=== PATIENT | female | born 1990 | race Caucasian/White ===

== ENCOUNTER 2017-02-10 19:05 | Inpatient (IN) ==
[2017-02-10] MEDS ORDERED: DINOPROSTONE 10 MG VAG.INSERT VAG ONE (19:18)
[2017-02-10 19:43] LABS: Basophils % 0.1 % (0.0-0.8); Eosinophils % 0.4 % (0.00-10.9); Hematocrit 30.8 VOL% (35.7-47.0); Hemoglobin 10.2 GM/DL (12.0-16.0); Immature Granulocytes % 0.4 %; Immature Granulocytes Absolute 0.04 #; Lymphocytes # 1.5 10*3/uL (1.4-4.0); Lymphocytes % 14.8 % (21.3-54.2); Mean Corpuscular HGB Conc 33.1 GM/DL (32-36); Mean Corpuscular Hemoglobin 29 PG (27-34); Mean Corpuscular Volume 86.8 FL (87-102); Mean Platelet Volume 10.3 FL (9.6-12.0); Monocytes # 0.5 10*3/uL (0.11-0.8); Monocytes % 5.2 % (1.7-12.7); Neutrophils # 8.2 10*3/uL (1.4-7.4); Neutrophils % 79.1 % (38.7-73.9); Platelet Count 234 T/CUMM (130-400); Red Blood Count 3.55 MC/CUMM (3.8-5.5); Red Cell Distribution Width 14.2 % (9.3-17.3); White Blood Count 10.4 T/CUMM (4-12)
[2017-02-10] MEDS: LACTATED RINGERS 1,000 ML IV SCH (20:05)
--- NOTE | 2017-02-10 22:08 | OB/GYN History & Physical ---
History of Present Illness Chief complaint: Pelvic pressure History of present illness: Ms. Maguire is a 26 year old female 02/10/2017 @ 11:00am HPI: 26y/o WF @ 39 0/7 weeks per 11 week u/s. Denies any vaginal bleeding or leakage of fluid. Reports good movement. 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 Father HTN & Heart Disease Mother - stroke Social Hx. Single WF No ETOH, no tobacco, no illicit drug use Meds: PNVs Allergies: NKDA Labs: WNL Home Medications Medication Instructions Recorded Confirmed Type Vits #90/Iron Fum/FA 1 tablet PO DAILY 02/10/17 02/10/17 History [ Formula Tablet] Allergies Allergy/AdvReac Type Severity Reaction Status Date / Time No Known Allergies Allergy Verified 02/10/17 19:18 12 point system: reviewed and no additional remarkable complaints except as stated Medical,Surgical,& Family Hx - Medical History Medical History: noncontributory Reproductive: No history of: Ectopic , Complication - Surgical History Reproductive Surgeries: Patient denies;: Section - Family History Family History: Reports;: Family Cancer (PGM), Family Diabetes (DAD), Family Heart Disease (DAD), Family Psychiatric Problems (MOM), Family Stroke (DAD) Denies;: Family Anesthesia Reaction, Family Hematology, Family Hypertension, Additional Family History - Social History Smoking Status: Never smoker Frequency of Alcohol Use: None Type of Drug Use: 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 General appearance: normal weight - Antepartum / Post Antepartum Exam Cervix - Dilatation: 2cm Effacement: 50 Station: -2 Presentation: vertex Heart Rate: 150's Breast: bilateral: normal Vulva: bilateral: normal Vagina: Present: normal moisture Cervix: Present: normal Uterus exam: Present: normal size Adnexa: bilateral: normal - Head Head exam: Present: normal inspection - Eye Eye exam: Present: EOMI Pupils: Present: AMIRA - ENT ENT exam: Present: normal exam - Neck Neck exam: Present: normal inspection - Respiratory Respiratory exam: Present: clear to auscultation bilaterally - Breast Breasts: other (normal) Menstruation: amenorrhea (secondary due to ) - Cardiovascular Cardiovascular exam: Present: regular rate and rhythm Peripheral pulses: 2+: posterior tibialis (L), posterior tibialis (R), dorsalis pedis (L), dorsalis pedis (R) - GI/Abdominal GI/Abdominal exam: Present: distended (Due to gravid uterus) - Extremities Exam Extremities exam: Present: normal inspection - Back Exam Back exam: Present: normal inspection - Neurological Exam Neurological exam: Present: alert, oriented X3, normal gait - Psychiatric Psychiatric exam: Present: normal affect, normal mood - Skin Skin exam: Present: normal color, warm, dry Assessment and Plan (1) Term Status: Acute Assessment and plan: Admit for cervical ripening with cervidil Pain management as desired Expectant management Current Visit: Yes (2) Elective induction of labor planned Status: Acute Assessment and plan: Will start Pitocin at 0600am on 02/11/2017 for induction of labor Pain management as desired Expectant management Anticipate Current Visit: Yes Results - Labs CBC & BMP: 02/10/17 19:32
[2017-02-11] MEDS: ONDANSETRON 4 MG/2 ML VIAL IV PRN ×2 (02:01→08:58)
[2017-02-11] MEDS: BUTORPHANOL 2 MG/ML VIAL IV PRN ×2 (02:01→09:00)
[2017-02-11] MEDS: LACTATED RINGERS 1,000 ML IV SCH ×2 (06:00→09:46)
[2017-02-11] MEDS ORDERED: OXYTOCIN/LR 20 UNIT/1,000 ML BAG IV SCH (06:00)
[2017-02-11] MEDS ORDERED: CITRIC ACID/SODIUM CITRATE 30 ML UDCUP PO ONE (08:01)
[2017-02-11] MEDS ORDERED: diphenhydrAMINE 50 MG/1 ML VIAL IV PRN (08:01)
[2017-02-11] MEDS ORDERED: hydrOXYzine HCL 25 MG/1 ML VIAL IM PRN (08:01)
[2017-02-11] MEDS ORDERED: fentaNYL 2 MCG/ROPIV 0.2% EPID 150 ML EPIDURAL SCH (08:01)
[2017-02-11] MEDS ORDERED: FAMOTIDINE 20 MG/2 ML VIAL IV ONE (08:01)
[2017-02-11] MEDS ORDERED: LACTATED RINGERS 1,000 ML IV ONE (08:01)
[2017-02-11] MEDS ORDERED: PROMETHAZINE 25 MG/1 ML VIAL IM ONE (08:01)
[2017-02-11] MEDS ORDERED: ePHEDrine 50 MG/ML AMP IV PRN (08:01)
--- NOTE | 2017-02-11 08:31 | OB/GYN Progress Note ---
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
[2017-02-11] MEDS ORDERED: miSOPROStol 200 MCG TABLET ONE (10:49)
--- NOTE | 2017-02-11 12:17 | OB/GYN Progress Note ---
Assessment and Plan (1) Term Status: Resolved Assessment and plan: Admit for cervical ripening with cervidil Pain management as desired Expectant management Current Visit: Yes (2) Elective induction of labor planned Status: Resolved Assessment and plan: Induction of labor via pitocin Epidural for pain management Expectant management Anticipate Current Visit: Yes (3) Normal vaginal delivery Status: Acute Assessment and plan: Routine PP management. 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 O- FHTs category I tracing, SVE 10/100/+1 station, began pushing, maternal pushing efforts sufficient. head delivered LUCILLE, nose and mouth suctioned on perineum. shoulders and body delivered without difficulty. Male genitalia noted, nose and mouth suctioned again, vigorous cry noted. Infant dried and stimulated and placed on mom's abdomen. Placenta delivered at 11:55am intact, 3 vessel cord noted, fundus massaged until firm, EBL 200mls.Apgars 9/9. see chart for weight as infant skin to skin with mom immediately after delivery. A- of viable male P- Routine PP management Exam RECREATIONAL ASSISTANT - Constitutional Vitals: Vital Signs Temp Pulse Resp BP 02/11/17 09:00 97.1 F L 02/11/17 07:47 97.8 F 02/11/17 04:00 73 16 99/61 02/10/17 23:45 97.5 F L 72 16 122/68 Results - Labs CBC & BMP: 02/10/17 19:32
[2017-02-11] MEDS ORDERED: BISACODYL 10 MG SUPP RECTAL PRN (12:38)
[2017-02-11] MEDS ORDERED: ACETAMINOPHEN 325 MG TABLET PO PRN (12:38)
[2017-02-11] MEDS ORDERED: MAGNESIUM HYDROXIDE SUSP 30 ML UDCUP PO PRN (12:38)
[2017-02-11] MEDS ORDERED: OXYTOCIN/LR 20 UNIT/1,000 ML BAG IV ONE (14:28)
[2017-02-11] MEDS: DOCUSATE SODIUM 100 MG CAPSULE PO SCH (21:21)
[2017-02-11] MEDS: IBUPROFEN 800 MG TABLET PO PRN (21:25)
[2017-02-12 05:35] LABS: Basophils % 0.2 % (0.0-0.8); Eosinophils # 0.1 10*3/uL (0.0-0.87); Eosinophils % 0.6 % (0.00-10.9); Hematocrit 27.1 VOL% (35.7-47.0); Hemoglobin 8.8 GM/DL (12.0-16.0); Immature Granulocytes % 0.4 %; Immature Granulocytes Absolute 0.03 #; Lymphocytes # 1.8 10*3/uL (1.4-4.0); Lymphocytes % 21.3 % (21.3-54.2); Mean Corpuscular HGB Conc 32.5 GM/DL (32-36); Mean Corpuscular Hemoglobin 29 PG (27-34); Mean Corpuscular Volume 88.3 FL (87-102); Mean Platelet Volume 10.5 FL (9.6-12.0); Monocytes # 0.6 10*3/uL (0.11-0.8); Monocytes % 6.6 % (1.7-12.7); Neutrophils # 5.9 10*3/uL (1.4-7.4); Neutrophils % 70.9 % (38.7-73.9); Platelet Count 174 T/CUMM (130-400); Red Blood Count 3.07 MC/CUMM (3.8-5.5); Red Cell Distribution Width 14.5 % (9.3-17.3); White Blood Count 8.3 T/CUMM (4-12)
[2017-02-12] MEDS: IBUPROFEN 800 MG TABLET PO PRN ×2 (08:26→20:57)
[2017-02-12] MEDS: DOCUSATE SODIUM 100 MG CAPSULE PO SCH ×2 (08:26→20:57)
[2017-02-12] MEDS: MULTIVITAMIN (PRENATAL) TABLET PO SCH (08:26)
[2017-02-12] MEDS ORDERED: ACETAMINOPHEN/CODEINE 300-30 MG TABLET ONE (08:30)
[2017-02-12] MEDS: ACETAMINOPHEN/CODEINE 300-30 MG TABLET PO PRN ×3 (08:31→20:57)
--- NOTE | 2017-02-12 08:34 | OB/GYN Progress Note ---
Assessment and Plan (1) Term Status: Resolved Assessment and plan: Admit for cervical ripening with cervidil Pain management as desired Expectant management Current Visit: Yes (2) Elective induction of labor planned Status: Resolved Assessment and plan: Induction of labor via pitocin Epidural for pain management Expectant management Anticipate Current Visit: Yes (3) Normal vaginal delivery Status: Resolved Assessment and plan: Routine PP management. Current Visit: Yes (4) examination following vaginal delivery Status: Acute Assessment and plan: Continue Routine PP management Anticipate discharge home in the morning. Current Visit: Yes (5) Anemia Status: Acute Assessment and plan: Start Ferrous Sulfate 325mg 1 po BID Current Visit: Yes Qualifiers: Anemia type: other cause CALL MANAGER - PN: Subj Interval history: 02/12/2017 @ 0820am S-Patient rec'd ambulating in room after shower. Patient reports normal voiding without difficulty, reports minimal bleeding. Patient reports that she is bottle feeding infant and expresses desire for tubal ligation as form of contraception. Patient reports that she signed tubal consent in the office on previous visit. O- CVS- RRR, no murmur, Lungs-CTA bilaterally Breast with bra, soft and nipples intact bilaterally Fundus- firm 2-3 fbs below umbilicus Lochia- small amount of dark red rubra noted Extremities-+ pedal pulses, no edema, negative neo's sign bilaterally H/H 8.8/27.1 Exam CALL MANAGER - Constitutional Vitals: Vital Signs Temp Pulse Resp BP Pulse Ox 02/12/17 07:27 97.9 F 69 18 126/76 97 02/12/17 06:00 18 02/12/17 04:00 97.5 F L 73 18 117/71 98 02/12/17 02:00 18 02/12/17 00:00 97.6 F 76 18 129/63 98 02/11/17 21:25 99.9 F H 02/11/17 20:00 99.9 F H 72 18 121/67 99 02/11/17 16:35 99.2 F 72 20 102/67 97 02/11/17 16:00 97.8 F 88 18 120/73 99 02/11/17 12:10 97.8 F 02/11/17 09:00 97.1 F L Results - Labs CBC & BMP: 02/12/17 05:12
--- NOTE | 2017-02-12 11:50 | Anesthesia Post-Op ---
Anesthesia Post OP - Post Ansesthetic Evaluation Patient seen in post op: Yes Resp: within normal limits CV: within normal limits Mental: within normal limits Temp: within normal limits [id number]: within normal limits Nausea and Vomiting: within normal limits Pain: within normal limits
[2017-02-13 07:37] VITALS: BP 119/72
--- NOTE | 2017-02-13 08:06 | Discharge Summary ---
Hospital Course - Hospital Course Hospital Course: 02/13/2017 0750am S-Patient rec'd sitting up right in bed voicing readiness to go home. Patient reports normal voiding without difficulty, light bleeding. Patient denies a bowel movement but reports flatulence. Patient continues to express desire for a tubal ligation for contraception management. Voiced c/o some pain due to cramping O-CVS-RRR, no murmur, Lungs- CTA bilaterally Breast with bra, soft and nipples intact bilaterally Fundus- 3 fbs below umbilicus and firm Lochia- small amount of dark red rubra noted Extremities-+ pedal pulses, no edema, negative neo's sign bilaterally. Diagnosis - Discharge Diagnosis (1) Term Status: Resolved (2) Elective induction of labor planned Status: Resolved (3) Normal vaginal delivery Status: Resolved (4) examination following vaginal delivery Status: Acute (5) Anemia Status: Acute Discharge Plan - Discharge Data Disposition: Disch To Home/Self Care Condition at Discharge: Stable Discharge Diet: regular diet Activity: resume usual activities as tolerated Hygiene: may shower Weight Bearing at Discharge: full weight bearing Driving: not until seen by doctor Contact your physician if you experience:: fever over 101, Difficulty voiding, Shortness of breath, Bleeding, pain uncontrolled by pain medications - Discharge Medications New Acetamin/Codeine 300-30 Tab [Tylenol/Codeine #3] 1 tablet PO Q4H PRN #30 tablet PRN Reason: Pain Mild (1-3) Ferrous Sulfate 325 mg PO BID #60 tablet Ibuprofen Tab [Motrin Tab] 800 mg PO Q8H PRN #90 tablet PRN Reason: Pain Moderate (4-7) Continue Vits #90/Iron Fum/FA [ Formula Tablet] 1 tablet PO DAILY - Follow Up or Referral Follow Up: Kim Storm MD [Physician] - 2 Weeks (F/U with [facility] 2 weeks regarding Tubal ligation.) - Forms/Instructions Exam - Constitutional Vitals: Period Temp Pulse Resp BP Sys/Pablo Pulse Ox Last 24 Hr 97.5 F-98.1 F 61-80 18-20 103-132/55-79 97-99 DS: Provider Date of admission: 02/10/17 19:18 Primary care physician: Shun Tim MSN, [employer], CNM Attending physician on admission: Kim Storm MD Discharging clinician: Lexie Welsh Expected date of discharge: 02/13/17
[2017-02-13] MEDS: IBUPROFEN 800 MG TABLET PO PRN (08:34)
[2017-02-13] MEDS: MULTIVITAMIN (PRENATAL) TABLET PO SCH (09:10)
[2017-02-13] MEDS: DOCUSATE SODIUM 100 MG CAPSULE PO SCH (09:10)
== END 2017-02-13 12:25 | disposition home or self-care (01) | DRG 560 ==
LOC: N.LDOUT 19:05 → N.LD 19:11 → N.OB 02-11 16:31
PROVIDERS: ADMIT Obstetrics & Gynecology; ATTEND Obstetrics & Gynecology